=== PATIENT | male | born 1950 | race Caucasian/White ===

== ENCOUNTER → 2019-02-22 10:04 | Outpatient (CLI) | payer MEDICARE, OTHER, SELFPAY ==
--- NOTE | 2019-02-22 | DI.US.S_ITS ---
PROCEDURE: US ABDOMEN LIMITED INDICATIONS: CIRRHOSIS HEPATITIS C with interferon treatments. TECHNIQUE: Real-time focused scanning was performed of the abdomen, with image documentation. COMPARISON: None. FINDINGS: The liver is 14 cm in length. Homogeneous echotexture and smooth margins. No focal mass or biliary dilatation. Main portal vein measures 1.2 cm in diameter and demonstrates hepatopedal flow. IMPRESSION: No sonographic changes of cirrhosis. Dictated by: Heather Atkinson M.D. on 02/22/2019 at 11:56 Approved by: Heather Atkinson M.D. on 02/22/2019 at 11:57
== END ==
PROVIDERS: PCP Family Medicine; Visit Provider Internal Medicine Gastroenterology
DX: K74.60 Unspecified cirrhosis of liver (principal); B19.20 Unspecified viral hepatitis C without hepatic coma
CPT/HCPCS: 76705

== ENCOUNTER 2022-10-12 09:24 | Day surgery (SDC) | payer MEDICARE, OTHER, SELFPAY ==
--- NOTE | 2022-10-12 | PATH_ITS ---
[facility] Accession Number: [id number] No. of containers..01 Tissue . 01 Material submitted: . gastrointestinal site - GASTRIC BIOPSY . 01 Diagnosis: Stomach, Biopsy: Antral and body-type mucosa with mild chronic gastritis. Negative for Helicobacter by immunohistochemistry. Negative for intestinal metaplasia. Negative for dysplasia and malignancy. . MRV 10/17/2022 1243 Local . 01 Electronically signed: . Lizz Rasheed MD, Pathologist NPI- [id number] . 01 Gross description: . GASTRIC BIOPSY: Received in formalin are 2 fragment(s) of cho, soft tissue measuring 0.3 x 0.3 x 0.1 cm to 0.2 x 0.2 x 0.1 cm submitted entirely in 1 cassette(s) /CPE 10/13/2022 0622 Local . 01 Microscopic: . An immunohistochemical stain was performed to evaluate for Helicobacter organisms and is negative. The control stain showed appropriate reactivity. . * This test was developed and its performance characteristics determined by [facility]. It has not been cleared or approved by the U.[place]. Food and Drug Administration. The FDA has determined that such clearance or approval is not necessary. This test is used for clinical purposes. It should not be regarded as investigational or for research. . 01 Pathologist provided ICD-10: K74.60 . 01 CPT . 042716, D25257 Specimen Comment: A courtesy copy of this report has been sent to [facility] Pathology Performed at: 01 [facility] [address] [place] [address], [place], [place] [id number] MD Kyrie Hanks MD Phone: [phone]
[2022-10-12 10:03] VITALS: BMI 23.7
[2022-10-12] MEDS: AMPICILLIN 2,000 MG in SODIUM CHLORIDE 0.9% 100 ML 200 MG IV (10:11)
[2022-10-12 10:17] VITALS: BP 129/68; PULSE 60; RESP 18; TEMP 36.4; O2SAT 96
--- NOTE | 2022-10-12 11:18 | PM.PREOP ---
Pre-operative Note COVID-19 COVID-19 status: Negative Interval Note History & Physical reviewed/Exam performed by Physician: Yes Changes to H&P: No ASA Class (for procedural sedation): II
--- NOTE | 2022-10-12 11:19 | PM.OP.EGD ---
Operative Date/Time/Diagnoses Date of procedure: 10/12/22 Pre-op diagnosis: See indication and findings Procedure & Clinicians Study performed: EGD Indications: Significant GE reflux. Also history of chronic Surgeon: Kiki Vincent Procedure Notes Procedure in detail: After informed consent was obtained the patient was placed in left lateral decubitus position. The video upper scope was placed into the oropharynx and with the patient's help swelled into the esophagus. The esophagus stomach and duodenum were carefully examined. On withdrawal, retroflexed view the GE junction was performed. The scope was removed. The patient tolerated the procedure well. Blood loss none Complications none Sedation mac Findings 1. At least grade B esophagitis at the GE junction. 2. Striped gastric erythema in the antrum biopsies taken to rule out Helicobacter 3. Otherwise normal duodenal bulb and sweep. 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 q.day. Then call in 1 month to let us know how he is doing. He does not need follow-up EGD to assess for varices given the regression of the severity of liver disease on last evaluation.
--- NOTE | 2022-10-12 11:20 | PM.HP.1 ---
History of Present Illness History of Present Illness Date Patient Seen: 10/12/22 Chief complaint: EGD Narrative: Significant GE reflux with regurgitation and her history of liver disease rule out varices Patient History Family & Social History Tobacco & Substance use: Smoking Status Never smoker alcohol intake frequency holiday/special occasion Substance Use Type marijuana Meds Home Medications and Allergies Home Medications Medication Instructions Recorded Confirmed Type aspirin 81 mg capsule 81 mg PO DAILY 10/12/22 10/12/22 History atorvastatin 10 mg tablet 10 mg PO BEDTIME 10/12/22 10/12/22 History diltiazem HCl 120 mg 120 mg PO DAILY 10/12/22 10/12/22 History capsule,extended release 24 hr, controlled lisinopril 2.5 mg tablet 2.5 mg PO DAILY 10/12/22 10/12/22 History Allergies Allergy/AdvReac Type Severity Reaction Status Date / Time No Known Drug Allergies Allergy Verified 10/12/22 10:00 Exam Vital Signs (past 8 hours): - 10/12/22 10:17 Temperature 97.6 F Pulse Rate 60 Respiratory Rate 18 Blood Pressure 129/68 Pulse Oximetry 96 Oxygen Delivery Method Room Air Oxygen Delivery Method Room Air Narrative Exam Narrative: Oropharynx free of lesions Chest clear to auscultation percussion Cardiac exam reveals no S3 or murmur Assessment & Plan Assessment & Plan narrative: GE reflux and history liver disease rule out varices. Risks benefits alternatives have been explained. Proceed with EGD. Time Spent With Patient Critical Care time: I spent a total of [] minutes of critical care time on this patient's care today; this time is exclusive of procedural time.
[2022-10-12 11:33] VITALS: BP 114/72; PULSE 65; RESP 14; TEMP 36.2; O2SAT 97
[2022-10-12 11:38] VITALS: BP 102/68; PULSE 64; RESP 15; O2SAT 96
[2022-10-12 11:43] VITALS: BP 102/66; PULSE 65; RESP 19; TEMP 36.2; O2SAT 99
[2022-10-12 11:50] VITALS: BP 108/73; PULSE 64; RESP 20; O2SAT 99
[2022-10-12 12:10] VITALS: BP 131/87; PULSE 62; RESP 15; TEMP 36.2; O2SAT 100
--- NOTE | 2022-10-12 12:20 | SUR.PHASEI ---
1215: Pt A&Ox4, denies any distress, VSS and ready to discharge home. Discharge instructions reviewed with patient and time allowed for questions. Instructed pt to call pharmacy, [facility], to make sure RX is ready, if any issues to call MD to confirm where sent, pt has agreed. IV DC'd intact, pt left unit with written instructions and all personal belongings via W/C to ER entrance to meet spouse who will transport pt home.
== END 2022-10-12 12:15 | disposition home or self-care (01) ==
PROVIDERS: PCP Family Medicine; Referring Provider Internal Medicine Gastroenterology; Visit Provider Internal Medicine Gastroenterology
PROC: 0DJ08ZZ Inspection of Upper Intestinal Tract, Via Natural or Artificial Opening Endoscopic (ICD-10-PCS; CPT 43235; principal; 2022-10-12 11:00)
DX: K29.50 Unspecified chronic gastritis without bleeding (principal); K21.00 Gastro-esophageal reflux disease with esophagitis, without bleeding
CPT/HCPCS: 43239; J0290; J2704